=== PATIENT | male | born 1995 | race Caucasian/White ===

== ENCOUNTER 2024-01-24 08:43 | Emergency (ER) | payer OTHER, SELFPAY ==
[2024-01-24 08:52] VITALS: BP 122/63; PULSE 98; RESP 16; TEMP 37.3; O2SAT 99
--- NOTE | 2024-01-24 09:11 | ED.URI ---
HPI - URI/Sore Throat General Chief Complaint: Upper Respiratory Infection Stated Complaint: sore throat,SAN,fever,bodyaches Time Seen by Provider: 01/24/24 09:04 Source: patient and RN notes reviewed Mode of arrival: ambulatory Limitations: no limitations History of Present Illness HPI Narrative: Patient presents today with a 2 day history of sore throat, headache, nausea, fever up to 100.2, body aches, mild cough. He has tried DayQuil, NyQuil, and ibuprofen with some mild relief and currently rates his pain 8/10. No known sick contacts. No history of asthma or COPD. He does not smoke or vape. Related Data Home Medications Medication Instructions Recorded Confirmed No Home Medications 01/24/24 01/24/24 Allergies Allergy/AdvReac Type Severity Reaction Status Date / Time nickel Allergy Severe Rash Verified 02/03/23 15:50 Review of Systems Review of Systems: CONSTITUTIONAL: Denies chills, or sweats.+ body aches, fever EYES: Denies visual changes, redness, or discharge. ENT: Denies rhinorrhea, congestion, or otalgia.+ sore throat CARDIOVASCULAR: Denies chest pain, palpitations, or edema. RESPIRATORY: Denies dyspnea.+ cough GASTROINTESTINAL: Denies abdominal pain, vomiting, or diarrhea.+ nausea GENITOURINARY: Denies dysuria or hematuria. SKIN: Denies rash, itching, or wounds. MUSCULOSKELETAL: Denies back pain, joint pain, or myalgia. NEUROLOGIC: Denies numbness, tingling, or weakness.+ headache PSYCH: Denies depression or anxiety. [facility] Family History Family History Grandparent Diabetes mellitus Family history of malignant neoplasm Carcinoma of colon Other Anxiety Breast cancer Cerebrovascular accident Heart disease Hypertension Social History Social History Smoking status: Never smoker Second hand tobacco smoke exposure: No Alcohol intake: never Substance use: never Substance use type: does not use Current Housing: Decline to Answer Concerned About Future Housing: Decline to Answer Difficulty Paying Gas/Electric Bills: Decline to Answer Difficulty Paying for Meds: Decline to Answer Currently Unemployed: Decline to Answer Difficulty w/ Childcare or Family Care: Decline to Answer Living arrangements: with family Occupation/Education: occupation Additional occupation/education comments: [employer] Gender identity (if verbalized by the patient): Male Sexual Orientation (if Verbalized by the Patient): Straight or Heterosexual Spiritual care concerns: No Agree to blood products: Yes Comments At time of signature, I have reviewed and agree with nursing past medical, surgical, social and family history unless otherwise noted. Please see nursing chart for further information. There is no relevant family history pertinent to the presenting complaint Exam Narrative: GENERAL: Well-appearing, well-nourished, and in no acute distress. HEAD: Normocephalic, atraumatic. EYES: EOMI. No redness or drainage. Conjunctivae normal. ENT: Mucous membranes pink and moist. Nares clear. No rhinorrhea. TMs normal bilaterally. Throat mildly erythematous without edema or exudate. Uvula midline. NECK: Normal AROM. Supple. No lymphadenopathy. CHEST: No respiratory distress. Clear to auscultation. HEART: Regular rate and rhythm. No murmur appreciated. EXTREMITIES: Normal range of motion. No edema. SKIN: Warm, dry, no rash. Capillary refill normal. Normal skin turgor. NEURO: No focal deficits. Alert and oriented x3. Gait steady. PSYCH: Normal affect. No signs of depression or anxiety. Course Course Level of Care: Express Care Visit Vital Signs Vital signs: Vital Signs Temperature 99.1 F 01/24/24 08:52 Pulse Rate 98 01/24/24 08:52 Respiratory Rate 16 01/24/24 08:52 Blood Pressure 122/63 01/24/24 08:52 Pulse Oximetry 9
[2024-01-24 09:14] LABS: EDINFLUASCREEN Negative; EDINFLUBSCREEN Negative
[2024-01-24 09:15] LABS: EDSTREPNEGPOS1 Presumptive Negative
== END 2024-01-24 09:26 | disposition home or self-care (01) ==
PROVIDERS: Emergency Provider Nurse Practitioner; PCP Family Medicine
DX: J06.9 Acute upper respiratory infection, unspecified (principal); Z20.822 Contact with and (suspected) exposure to COVID-19
CPT/HCPCS: 87081; 87426; 87804; 87880; 99213; G0463

== ENCOUNTER 2024-08-11 17:08 | Emergency (ER) | payer OTHER, SELFPAY ==
[2024-08-11 17:19] VITALS: BP 126/62; PULSE 94; RESP 16; TEMP 37.7; O2SAT 98
[2024-08-11 17:34] LABS: EDINFLUASCREEN Positive (Negative); EDINFLUBSCREEN Negative (Negative)
--- NOTE | 2024-08-11 17:34 | ED.GENADULT ---
HPI - General Adult General Chief complaint: Upper Respiratory Infection Stated complaint: cough,chest pressure History of Present Illness HPI narrative: Marina Nguyen is a 29-year-old male who presents today with complaints of URI symptoms that started 3 days ago. He complains of cough, sore throat, congestion, body aches not feeling well Related Data Allergies Allergy/AdvReac Type Severity Reaction Status Date / Time nickel Allergy Severe Rash Verified 08/11/24 17:19 Review of Systems Review of Systems: All systems reviewed & are unremarkable except as noted in HPI and below PMFSH Family History Family History Grandparent Diabetes mellitus Family history of malignant neoplasm Carcinoma of colon Other Anxiety Breast cancer Cerebrovascular accident Heart disease Hypertension Social History Social History Smoking status: Never smoker Second hand tobacco smoke exposure: No Alcohol intake: never Substance use: never Substance use type: does not use Current Housing: Decline to Answer Concerned About Future Housing: Decline to Answer Difficulty Paying Gas/Electric Bills: Decline to Answer Difficulty Paying for Meds: Decline to Answer Currently Unemployed: Decline to Answer Difficulty w/ Childcare or Family Care: Decline to Answer Living arrangements: with family Occupation/Education: occupation Additional occupation/education comments: [employer] Gender identity (if verbalized by the patient): Male Sexual Orientation (if Verbalized by the Patient): Straight or Heterosexual Spiritual care concerns: No Agree to blood products: Yes Exam Narrative: GENERAL: Well-appearing, well-nourished, and in no acute distress. HEAD: Normocephalic, atraumatic. EYES: PERRLA and EOMI. ENT: Nares clear, no rhinorrhea or epistaxis. Mucous membranes moist. Oropharynx without tonsillar hypertrophy exudate or other lesions. Bilateral TMs pearly [place] nonbulging NECK: Supple. No adenopathy or masses. No carotid bruits or JVD CHEST: Clear to auscultation. No respiratory distress. No wheezes rales or rhonchi HEART: Regular rate and rhythm. No murmur heard. Normal peripheral pulses. ABDOMEN: Soft, nontender, nondistended, normal active bowel sounds. EXTREMITIES: Normal range of motion. No edema. SKIN: Warm, dry, no rash. NEURO: No focal deficits. Alert and oriented x3. PSYCH: Normal mood and affect. Course Course Level of Care: Express Care Visit Vital Signs Vital signs: Vital Signs Temperature 37.7 C H 08/11/24 17:19 Pulse Rate 94 08/11/24 17:19 Respiratory Rate 16 08/11/24 17:19 Blood Pressure 126/62 08/11/24 17:19 Pulse Oximetry 98 08/11/24 17:19 Oxygen Delivery Room Air 08/11/24 17:19 Temperature 37.7 C H 08/11/24 17:19 Pulse Rate 94 08/11/24 17:19 Respiratory Rate 16 08/11/24 17:19 Blood Pressure 126/62 08/11/24 17:19 Pulse Oximetry 98 08/11/24 17:19 Oxygen Delivery Room Air 08/11/24 17:19 Medical Decision Making MDM Narrative Medical decision making narrative: ED COURSE AND MEDICAL DECISION MAKING: This 29 year old patient presents with symptoms most suggestive of viral upper respiratory tract infection. Lungs are clear bilaterally without any respiratory distress or accessory muscle use. Patient is treated symptomatically with Motrin he took nyquil before arrival Viral swab: Influenza A Patient is discharged home in stable condition with expectant management. Return precautions were provided. Procedures: Pulse oximetry interpretation - not hypoxic. Review of medical records. DISPOSITION: Discharged home in stable condition. IMPRESSION: Influenza a Medical Records Medical records reviewed: Yes I reviewed the external patient's medical records. Vital Signs Vital Signs: Vital Signs Temperature 37.7 C H 08/11/24 17:19 Pulse Rate 94 08/11/24 17:19 Respiratory Rate 16 08/11/24 17:19 Blood Pressure 126/62 08/11/24 17:19 Pulse Oximetry 98 08/11/24 17:19 Oxygen Delivery Room Air 08/11/24 17:19 Temperature 37.7 C H 08/11/24 17:19 Pulse Rate 94 08/11/24 17:19 Respiratory Rate 16 08/11/24 17:19 Blood Pressure 126/62 08/11/24 17:19 Pulse Oximetry 98 08/11/24 17:19 Oxygen Delivery Room Air 08/11/24 17:19 vitals reviewed Lab Data Lab results reviewed: Yes I reviewed the patient's lab results. Discharge Plan Discharge Clinical Impression: Influenza A Patient Disposition: Home, Self-Care Condition: Stable Instructions: Antibiotic Form Additional Instructions: Continue to take Tylenol and Motrin for body aches and fever Push oral hydration drinking more water/ Gatorade Get plenty of rest Follow up with your PCP in 1 week to ensure you are getting better If you develop any worsening symptoms chest pain/ shortness of breath/ difficulty breathing / vomiting proceed to the ER Patient Language: Albanian Prescriptions: New benzonatate 100 mg capsule 100 mg PO TID PRN (Reason: cough) Qty: 15 0RF Follow-up/Referrals: Sally Poon MD [Primary Care Provider] - 1 Week Stand Alone Forms: Work/School Release IP Time of Disposition: 17:41
[2024-08-11 17:43] LABS: EDCOVIDSCREEN Negative (Negative)
== END 2024-08-11 17:45 | disposition home or self-care (01) ==
PROVIDERS: Emergency Provider Nurse Practitioner Family; PCP Family Medicine
DX: J10.1 Influenza due to other identified influenza virus with other respiratory manifestations (principal); Z20.822 Contact with and (suspected) exposure to COVID-19
CPT/HCPCS: 87426; 87804; 99213; G0463